=== PATIENT | female | born 1965 | race Caucasian/White ===

== ENCOUNTER 2021-04-01 14:38 | Outpatient (CLI) | payer OTHER ==
[~2021-04-01] VITALS: Ht 165.1 cm; Wt 84.0 kg
[2021-04-01 13:35] VITALS: BP 150/69; PULSE 77; TEMP 98.8
[2021-04-01 13:50] VITALS: BP 162/77; PULSE 74
[2021-04-01 14:05] VITALS: BP 134/68; PULSE 74
[2021-04-01 14:20] VITALS: BP 145/72; PULSE 73
[2021-04-01 14:50] VITALS: BP 153/63; PULSE 74
[2021-04-01 15:00] VITALS: TEMP 98.5
[2021-04-01] MEDS ORDERED: WELLBUTRIN XL300 M1 PO (15:32)
[2021-04-01] MEDS ORDERED: PRINIVIL10 MG PO (15:33)
[2021-04-01] MEDS ORDERED: KLONOPIN 0.5MG0.5 MG PO (15:33)
[2021-04-01] MEDS ORDERED: MELATONIN3 M1 PO (15:34)
[2021-04-01] MEDS ORDERED: CENTRUM1 TA1 PO (15:34)
[2021-04-01] MEDS ORDERED: PRILOTC PO (15:35)
[2021-04-01] MEDS ORDERED: ZOLOFT 100MG100 MG PO (15:36)
[2021-04-01] MEDS ORDERED: ZOCOR 20MG20 MG PO (15:36)
[2021-04-01] MEDS ORDERED: PREDNISONE20 MG PO (15:37)
[2021-04-01] MEDS ORDERED: DOXYCYCLINE HY100 MG PO (15:37)
[2021-04-01] MEDS ORDERED: PROVENTIL0.09 MG/A1 IH (15:38)
== END 2021-04-01 15:42 | disposition home or self-care (01) ==
LOC: EUO 14:38
DX: U07.1 COVID-19 (principal)
CPT/HCPCS: Q0244